=== PATIENT | male | born 1995 | race Caucasian/White ===

== ENCOUNTER 2017-03-21 13:10 | Emergency (ER) | payer OTHER ==
[~2017-03-21] VITALS: Ht 165.1 cm; Wt 91.0 kg
[2017-03-21 13:17] VITALS: Ht 165.1 cm; Wt 91.0 kg
[2017-03-21] MEDS ORDERED: DIPHENHYDRAMINE 25 MG CAP PO ONE (15:00)
[2017-03-21] MEDS ORDERED: predniSONE 20 MG TAB PO ONE (15:00)
[2017-03-21] MEDS ORDERED: OPHTHALMIC IRRIG SOLUTION 120 ML LEFT EYE ONE (15:00)
[2017-03-21] MEDS ORDERED: NAPH15DR OP (15:27)
--- NOTE | 2017-03-21 15:29 | ERD ---
ER Documentation Chief Complaint Date/Time DATE: 03/21/17 TIME: 15:28 Chief Complaint lt eye redness HPI 21-year-old male complains of a 1 hour history of some swelling and redness on the lateral aspect of his left eye. Denies any known allergens or exposures. Upon further questioning he may have pet dog and then rubbed his eye. Denies any visual changes or visual field deficits. Denies contact lens use. ROS All systems reviewed and are negative except as per history of present illness. Medications Home Meds Active Scripts Naphazoline Hcl/Phenir Mal (Naphcon-A Eye Drops) 15 Ml Drops, 15 ML OP QID for 5 Days, BOTTLE Prov:ANUJA TERESA MD 03/21/17 Allergies Allergies: Coded Allergies: No Known Allergy (Unverified , 03/21/17) PMhx/Soc Medical and Surgical Hx: pt denies Medical Hx, pt denies Surgical Hx History of Surgery: No Anesthesia Reaction: No Hx Neurological Disorder: No Hx Respiratory Disorders: No Hx Cardiac Disorders: No Hx Psychiatric Problems: No Hx Miscellaneous Medical Probl: No Hx Alcohol Use: No Hx Substance Use: No Hx Tobacco Use: No Smoking Status: Never smoker Physical Exam Vitals Vital Signs Date Time Temp Pulse Resp B/P Pulse Ox O2 Delivery O2 Flow Rate FiO2 03/21/17 13:17 98.1 90 18 140/78 99 Physical Exam Const: [] Alert, [id number] per Head: Atraumatic Eyes: There is some ecchymosis on the lateral aspect the left sclera. Eyes are PERRLA and anterior chambers appear normal. There is no periorbital swelling, erythema or proptosis ENT: Normal External Ears, Nose and Mouth. Neck: Full range of motion..~ No meningismus. Resp: Clear to auscultation bilaterally Cardio: Regular rate and rhythm, no murmurs Abd: Soft, non tender, non distended. Normal bowel sounds Skin: No petechiae or rashes Back: No midline or flank tenderness Ext: No cyanosis, or edema Neur: Awake and alert Psych: Normal Mood and Affect Results 24 hrs Current Medications Medications (Trade) Dose Ordered Sig/Macario Route PRN Reason Start Time Stop Time Status Last Admin Dose Admin Prednisone (Prednisone) 40 mg ONCE ONCE PO 03/21/17 15:00 03/21/17 15:01 DC Diphenhydramine HCl (Benadryl) 25 mg ONCE ONCE PO 03/21/17 15:00 03/21/17 15:01 DC Irrigating Solution (Eye Wash) 1 applic ONCE ONCE LEFT EYE 03/21/17 15:00 03/21/17 15:01 DC Procedures/MDM Patient presents with left-sided ecchymosis, likely allergic reaction, possibly dependent. The eye was irrigated and patient has no signs or symptoms to suggest dendritic lesions, ulcerations, visual changes, orbital cellulitis, bacterial infections. He was treated with Naphcon was given a dose of prednisone and Benadryl here in the ED. Patient was advised to follow-up with ophthalmology for persistent or worsening symptoms otherwise with primary care doctor this week. Departure Diagnosis: Primary Impression: Conjunctivitis Conjunctivitis type: acute Acute conjunctivitis type: unspecified Laterality: left Qualified Code: H10.32 - Acute conjunctivitis of left eye, unspecified acute conjunctivitis type Condition: Stable Patient Instructions: Conjunctivitis, Allergic Additional Instructions: Likely allergic reaction. Apply cold compresses. Recheck for redness, fevers, visual changes, new or worsening symptoms ANUJA TERESA MD March 21, 2017 15:29
[2017-03-21 17:00] VITALS: BP 132/70; PULSE 68; RESP 18; TEMP 97.3
== END 2017-03-21 17:00 | disposition home or self-care (01) ==
LOC: FTE 13:10
DX: H10.32 Unspecified acute conjunctivitis, left eye (principal)
CPT/HCPCS: J7512; Z7502; Z7610; 99283